=== PATIENT | male | born 1955 | race Caucasian/White ===

== ENCOUNTER → 2021-02-11 | Outpatient (CLI) | payer MEDICARE | LOC: RAD 10:14 | DX: J44.9 Chronic obstructive pulmonary disease, unspecified (principal); Z20.822 Contact with and (suspected) exposure to COVID-19 | CPT/HCPCS: 71046 ==

== ENCOUNTER 2021-02-14 18:48 | Inpatient (IN) | payer MEDICARE ==
[~2021-02-14] VITALS: Ht 177.8 cm; Wt 69.4 kg
[2021-02-14 19:34] LABS: HEMOGLOBIN 18.1 gm/dl (14.0-17.5); RED BLOOD COUNT 5.77 M/UL (4.20-5.50); WHITE BLOOD COUNT 6.7 K/UL (4.5-11.0)
[2021-02-14 19:55] LABS: BUN/CREATININE RATIO 13 (0-10)
[2021-02-14] MEDS ORDERED: LISINOPRIL10 MG PO (23:35)
[2021-02-14] MEDS ORDERED: MONTELUKAST SOD10 MG PO (23:39)
[2021-02-14] MEDS ORDERED: VAZALORE81 MG PO (23:40)
[2021-02-14] MEDS ORDERED: SIMVASTATIN20 MG PO (23:40)
[2021-02-14] MEDS ORDERED: FISH OIL + D31 EACH PO (23:41)
[2021-02-14] MEDS ORDERED: PREDNISONE10 MG PO (23:42)
[2021-02-14] MEDS ORDERED: PROVENTIL HFA6.7 GM INH (23:42)
[2021-02-14] MEDS ORDERED: PERIDEX15 ML PO (23:43)
[2021-02-14] MEDS ORDERED: GABAPENTIN800 MG PO (23:43)
[2021-02-14] MEDS ORDERED: HYDROCODON-ACE1 EAC6 PO (23:45)
[2021-02-14] MEDS ORDERED: TRELEGY ELLIPT1 EACH INH (23:46)
[2021-02-14] MEDS ORDERED: MEDROL DOSEPAK 24 MG PO (23:47)
[2021-02-14] MEDS ORDERED: IBU800 MG PO (23:47)
[2021-02-14] MEDS ORDERED: AMOXICILLIN875 MG PO (23:48)
[2021-02-14] MEDS ORDERED: SYMBICORT 16010.2 GM INH (23:48)
[2021-02-15 04:09] LABS: HEMOGLOBIN 17.3 gm/dl (14.0-17.5); RED BLOOD COUNT 5.5 M/UL (4.20-5.50)
[2021-02-15 05:02] LABS: BUN/CREATININE RATIO 15 (0-10)
[2021-02-16 04:35] LABS: BUN/CREATININE RATIO 23 (0-10)
[2021-02-16] MEDS ORDERED: KLONOPIN0.5 MG PO (09:28)
[2021-02-17] MEDS ORDERED: PREDNISONE 10 M10 MG PO (10:08)
--- NOTE | 2021-02-17 10:54 | NUR ---
PTS OXYGEN DROPPED TO 80% ON ROOM AIR
[2021-02-19 16:13] LABS: ORGANISM ID Not indicated. (.); SPECIMEN SOURCE Urine (.); STREPTOCOCCUS PNEUMONIAE AG Negative (Negative)
[2021-02-19 16:13] LABS: ORGANISM ID Not indicated. (.); SPECIMEN SOURCE Urine (.); STREPTOCOCCUS PNEUMONIAE AG Negative (Negative)
== END 2021-02-17 12:59 | disposition home or self-care (01) | DRG 189 ==
LOC: ER1 18:48 → PROG CARE 21:37 → CDU 21:37 → PROG CARE 23:09
PROVIDERS: Emergency Medicine; Internal Medicine; ADMIT Internal Medicine
PROC: 5A09457 Assistance with Respiratory Ventilation, 24-96 Consecutive Hours, Continuous Positive Airway Pressure (ICD-10-PCS; principal; 2021-02-14)
DX: J96.21 Acute and chronic respiratory failure with hypoxia (principal); J44.1 Chronic obstructive pulmonary disease with (acute) exacerbation; J96.22 Acute and chronic respiratory failure with hypercapnia; Z20.822 Contact with and (suspected) exposure to COVID-19; J20.9 Acute bronchitis, unspecified; I10 Essential (primary) hypertension; Z87.891 Personal history of nicotine dependence; Z79.899 Other long term (current) drug therapy; Z79.82 Long term (current) use of aspirin; Z79.52 Long term (current) use of systemic steroids
CPT/HCPCS: 36415; 36600; 71045; 71046; 80048; 80053; 81001; 82550; 82803; 83540; 83550; 83605; 83735; 83880; 84100; 85025; 85027; 85652; 86140; 87040; 87086; 87278; 87899; 93005; 94640; 94660; 94664; 94760; 96374; 96375; 99285; J0456; J1100; J1650; J2185; J2405; J2920; J2930; J7030; U0002